=== PATIENT | female | born 1990 | race Caucasian/White ===

== ENCOUNTER 2018-12-30 18:24 | Emergency (ER) | payer OTHER ==
[2018-12-30 18:33] VITALS: BP 107/75; PULSE 58; TEMP 97.9; BMI 19.3
--- NOTE | 2018-12-30 18:55 | PDOC ---
History of Present Illness - General Chief Complaint: Injury Stated Complaint: INJURY Time Seen by Provider: 12/30/18 18:44 - History of Present Illness Initial Comments: 12/30/18 18:53 28-year-old female without comorbidities presents for evaluation of right upper extremity pain. She states while a train door was closing she stuck her arm in the door and the door closed on her arm. She stopped the arm in the door horizontally and her wrist extended which caused the injury. She has minimal pain at this time. Past History - Past Medical History Allergies/Adverse Reactions: Allergies Allergy/AdvReac Type Severity Reaction Status Date / Time No Known Allergies Allergy Verified 12/30/18 18:26 Home Medications: Ambulatory Orders Cholecalciferol (Vitamin D3) [Vitamin D3] 1,000 unit PO DAILY 12/30/18 Doxycycline Hyclate 50 mg PO DAILY 12/30/18 Saccharomyces Boulardii [Probiotic] 250 mg PO DAILY 12/30/18 COPD: No - Psycho Social/Smoking Cessation Hx Smoking History: Never smoked Have you smoked in the past 12 months: No Hx Alcohol Use: Yes Drug/Substance Use Hx: No Review of Systems - Review of Systems Musculoskeletal: Yes: See HPI *Physical Exam - Vital Signs Last Vital Signs Temp Pulse Resp BP Pulse Ox 97.9 F 58 L 18 107/75 98 12/30/18 18:27 12/30/18 18:27 12/30/18 18:27 12/30/18 18:27 12/30/18 18:27 - Physical Exam Comments: 12/30/18 18:53 Right upper extremity skin color and temperature are normal there is full range of motion which is nonpainful of the shoulder wrist elbow and forearm. 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 There is no tenderness. She has mild discomfort over the extensor wad. No gross sensorimotor deficits compartments are soft and nontender she is neurovascular intact. Medical Decision Making - Medical Decision Making 12/30/18 18:54 Forearm extensor strain. Follow-up with orthopedics. Discussed use of Tylenol and Motrin. Also discussed the signs and symptoms of compartment syndrome which she does not exhibit at this time. The patient is safe to go home and follow-up with Ortho as an outpatient. 12/30/18 18:54 Instructed the patient to return to the emergency room should symptoms worsen. Discharge - Discharge Information Problems reviewed: Yes Clinical Impression/Diagnosis: Strain of right forearm Condition: Stable Disposition: HOME - Admission No - Follow up/Referral Referrals: Vic Mckeon DO [Staff Physician] - - Patient Discharge Instructions Additional Instructions: Please follow-up with orthopedics in 1 to 2 days for further evaluation and treatment options. Tylenol Motrin as directed for pain. Return to the emergency room for worsening symptoms. - Post Discharge Activity
== END 2018-12-30 19:17 | disposition home or self-care (01) ==
LOC: JERFT 18:24
DX: S56.811A Strain of other muscles, fascia and tendons at forearm level, right arm, initial encounter (principal); V81.4XXA Person injured while boarding or alighting from railway train or railway vehicle, initial encounter; Y93.89 Activity, other specified; Y92.815 Train as the place of occurrence of the external cause; Y99.8 Other external cause status
CPT/HCPCS: 99281-25